=== PATIENT | female | born 1965 | race Caucasian/White ===

== ENCOUNTER 2018-08-28 15:28 | Inpatient (IN) | payer BC ==
[~2018-08-28] VITALS: Ht 160 cm; Wt 62.1 kg
[2018-08-28 15:35] VITALS: Ht 160 cm; Wt 62.1 kg
[2018-08-28 17:06] LABS: BASOPHIL % 0.7 % (0-2); PLATELET COUNT 230 x10^3mcL (130-400); RED CELL DISTRIBUTION WIDTH 13.8 % (11.5-14.5)
[2018-08-28 17:16] LABS: CALCIUM 9.3 mg/dL (8.5-10.1); CHLORIDE SERUM 108 mmol/L (98-107); CREATININE SERUM 0.6 mg/dL (0.6-1.0); GFR1 > 60 mL/min; GLUCOSE SERUM 178 mg/dL (74-106); POTASSIUM SERUM 3.2 mmol/L (3.5-5.1); SODIUM SERUM 142 mmol/L (136-145)
[2018-08-28 17:20] LABS: ALBUMIN 3.6 g/dL (3.4-5.0); ALKALINE PHOSPHATASE 237 U/L (46-116); ALT/SGPT 141 U/L (14-59); AMYLASE 42 U/L (25-115); AST/SGOT 292 U/L (15-37); BILIRUBIN TOTAL 1.08 mg/dL (0.20-1.00); LIPASE 108 IU/L (73-393); TOTAL PROTEIN, SERUM 7.4 g/dL (6.4-8.2)
[2018-08-28 21:22] LABS: CHOLESTEROL/HDL RATIO 2.7; MAGNESIUM 1.5 mg/dL (1.8-2.4); PHOSPHOROUS 2.1 mg/dL (2.5-4.9)
[2018-08-28 22:45] VITALS: BP 117/61
[2018-08-29 05:08] VITALS: BP 121/61
[2018-08-29 06:58] LABS: PLATELET COUNT 192 x10^3mcL (130-400)
[2018-08-29 07:06] LABS: BASOPHIL % 0 % (0-2); RED CELL DISTRIBUTION WIDTH 14.7 % (11.5-14.5)
[2018-08-29 08:12] LABS: CARBON DIOXIDE 18.5 mmol/L (21-32); CHLORIDE SERUM 110 mmol/L (98-107); CREATININE SERUM 0.5 mg/dL (0.6-1.0); GFR1 > 60 mL/min; GLUCOSE SERUM 109 mg/dL (74-106); POTASSIUM SERUM 3.9 mmol/L (3.5-5.1); SODIUM SERUM 141 mmol/L (136-145)
[2018-08-29 08:13] LABS: CALCIUM 8.9 mg/dL (8.5-10.1)
[2018-08-29 09:09] VITALS: BP 118/80
[2018-08-29 11:37] LABS: microscopic required? YES; urine erythrocyte 2+ (NEGATIVE)
[2018-08-29 12:00] LABS: AMPHETAMINE QUAL UR NONE DETECTED (See below)
[2018-08-29 16:49] VITALS: BP 116/62
[2018-08-29 21:20] VITALS: BP 122/63
[2018-08-30 05:22] VITALS: BP 124/58
[2018-08-30 06:50] LABS: CALCIUM 8.9 mg/dL (8.5-10.1); CARBON DIOXIDE 21.5 mmol/L (21-32); CHLORIDE SERUM 109 mmol/L (98-107); CREATININE SERUM 0.5 mg/dL (0.6-1.0); GFR1 > 60 mL/min; GLUCOSE SERUM 138 mg/dL (74-106); MAGNESIUM 1.9 mg/dL (1.8-2.4); POTASSIUM SERUM 3.6 mmol/L (3.5-5.1); SODIUM SERUM 142 mmol/L (136-145)
[2018-08-30 06:59] LABS: BASOPHIL % 0.2 % (0-2); PLATELET COUNT 176 x10^3mcL (130-400)
[2018-08-30 07:00] LABS: RED CELL DISTRIBUTION WIDTH 15.6 % (11.5-14.5)
[2018-08-30 09:27] LABS: BILIRUBIN DIRECT 1.87 mg/dL (0.0-0.2); BILIRUBIN TOTAL 2.5 mg/dL (0.20-1.00); TOTAL PROTEIN, SERUM 6.5 g/dL (6.4-8.2)
[2018-08-30 09:37] VITALS: BP 121/71
[2018-08-30 17:42] VITALS: BP 112/61
[2018-08-30 19:50] VITALS: BP 128/74
[2018-08-31 04:05] VITALS: BP 132/75
[2018-08-31 06:33] LABS: BASOPHIL % 0.4 % (0-2); PLATELET COUNT 177 x10^3mcL (130-400)
[2018-08-31 06:44] LABS: CALCIUM 8.7 mg/dL (8.5-10.1); CHLORIDE SERUM 109 mmol/L (98-107); CREATININE SERUM 0.5 mg/dL (0.6-1.0); GFR1 > 60 mL/min; GLUCOSE SERUM 119 mg/dL (74-106); POTASSIUM SERUM 3.4 mmol/L (3.5-5.1); SODIUM SERUM 142 mmol/L (136-145)
[2018-08-31 07:04] LABS: RED CELL DISTRIBUTION WIDTH 14.9 % (11.5-14.5)
[2018-08-31 09:00] VITALS: BP 130/68
[2018-08-31 17:14] VITALS: BP 126/72
[2018-08-31 20:47] VITALS: BP 120/68
[2018-09-01 04:17] VITALS: BP 124/68
[2018-09-01 06:45] LABS: BASOPHIL % 0.3 % (0-2); PLATELET COUNT 190 x10^3mcL (130-400)
[2018-09-01 06:57] LABS: RED CELL DISTRIBUTION WIDTH 14.6 % (11.5-14.5)
[2018-09-01 07:06] LABS: ALKALINE PHOSPHATASE 166 U/L (46-116); ALT/SGPT 81 U/L (14-59); AST/SGOT 46 U/L (15-37); BILIRUBIN DIRECT 0.66 mg/dL (0.0-0.2); CALCIUM 8.7 mg/dL (8.5-10.1); CARBON DIOXIDE 25.6 mmol/L (21-32); CHLORIDE SERUM 108 mmol/L (98-107); CREATININE SERUM 0.4 mg/dL (0.6-1.0); GFR1 > 60 mL/min; GLUCOSE SERUM 87 mg/dL (74-106); POTASSIUM SERUM 3.2 mmol/L (3.5-5.1); SODIUM SERUM 142 mmol/L (136-145); TOTAL PROTEIN, SERUM 6.5 g/dL (6.4-8.2)
[2018-09-01 07:13] LABS: ALBUMIN 2.8 g/dL (3.4-5.0)
[2018-09-01 09:17] VITALS: BP 120/64
[2018-09-01 16:18] VITALS: BP 115/71
[2018-09-01 21:50] VITALS: BP 110/63
[2018-09-02 05:43] VITALS: BP 102/74
[2018-09-02 08:33] VITALS: BP 113/56
[2018-09-02] MEDS ORDERED: AMOXICILLIN AND1 TA3 PO (12:41)
[2018-09-02] MEDS ORDERED: URSODIOL500 MG PO ×2 (12:48→13:13)
[2018-09-02] MEDS ORDERED: ULTRAM50 MG PO (12:52)
[2018-09-02 12:57] LABS: PLATELET COUNT 236 x10^3mcL (130-400); RED CELL DISTRIBUTION WIDTH 14.7 % (11.5-14.5)
[2018-09-02 13:06] LABS: CALCIUM 9.8 mg/dL (8.5-10.1); CARBON DIOXIDE 24.6 mmol/L (21-32); CHLORIDE SERUM 106 mmol/L (98-107); CREATININE SERUM 0.6 mg/dL (0.6-1.0); GFR1 > 60 mL/min; GLUCOSE SERUM 107 mg/dL (74-106); SODIUM SERUM 140 mmol/L (136-145)
[2018-09-02 13:39] VITALS: BP 113/56
== END 2018-09-02 14:31 | disposition home or self-care (01) | DRG 252 ==
LOC: ED 15:28 → MU 19:36
PROVIDERS: Emergency Medicine; Family Medicine; Internal Medicine Gastroenterology; ADMIT Internal Medicine
PROC: 0FC98ZZ Extirpation of Matter from Common Bile Duct, Via Natural or Artificial Opening Endoscopic (ICD-10-PCS; principal; 2018-08-29 12:00)
PROC: 0FC98ZZ Extirpation of Matter from Common Bile Duct, Via Natural or Artificial Opening Endoscopic (ICD-10-PCS; 2018-08-31 09:30)
DX: K91.86 Retained cholelithiasis following cholecystectomy (principal); E83.39 Other disorders of phosphorus metabolism; E83.42 Hypomagnesemia; E87.6 Hypokalemia; R74.0 Nonspecific elevation of levels of transaminase and lactic acid dehydrogenase [LDH]; Z68.24 Body mass index [BMI] 24.0-24.9, adult; Y83.6 Removal of other organ (partial) (total) as the cause of abnormal reaction of the patient, or of later complication, without mention of misadventure at the time of the procedure; Y92.009 Unspecified place in unspecified non-institutional (private) residence as the place of occurrence of the external cause
CPT/HCPCS: 43260; 83880; C1769; J0295; J1170; J1610; J1885; J2250; J2405; J3490; J7030; J7120; Q0092; Q9967